=== PATIENT | male | born 1975 ===

== ENCOUNTER 2023-02-12 09:48 | Day surgery (SDC) | payer OTHER ==
[~2023-02-12] VITALS: Ht 175.3 cm; Wt 59.0 kg
[~2023-02-12 09:48] MED LIST: NUTRA/PRO PO; POTASSIUM99 MG PO; VITAMIN B-121000 MCG PO; VITAMIN D-32000 UNI1 PO
[2023-02-12] MEDS ORDERED: CHOLESTYRAMINE4 G1 PO (10:14)
[2023-02-12] MEDS ORDERED: NUTRA/PRO PO (10:15)
[2023-02-12] MEDS ORDERED: ABILIFY10 MG PO (10:18)
[2023-02-12 12:09] VITALS: BP 115/84
== END 2023-02-12 12:40 | disposition home or self-care (01) | DRG 392 ==
LOC: ORM 09:48
PROVIDERS: ATTEND Internal Medicine Gastroenterology
PROC: 0DBE8ZX Excision of Large Intestine, Via Natural or Artificial Opening Endoscopic, Diagnostic (ICD-10-PCS; principal; 2023-02-12)
PROC: 0DB98ZX Excision of Duodenum, Via Natural or Artificial Opening Endoscopic, Diagnostic (ICD-10-PCS; 2023-02-12)
PROC: 0DB78ZX Excision of Stomach, Pylorus, Via Natural or Artificial Opening Endoscopic, Diagnostic (ICD-10-PCS; 2023-02-12)
PROC: 0DB48ZX Excision of Esophagogastric Junction, Via Natural or Artificial Opening Endoscopic, Diagnostic (ICD-10-PCS; 2023-02-12)
DX: K52.832 Lymphocytic colitis (principal); K64.8 Other hemorrhoids; K29.50 Unspecified chronic gastritis without bleeding; K29.80 Duodenitis without bleeding; K21.00 Gastro-esophageal reflux disease with esophagitis, without bleeding